=== PATIENT | female | born 1955 | race African-American/Black ===

== ENCOUNTER 2021-07-28 10:31 | Emergency (ER) | payer MEDICARE, MEDICAID ==
[2021-07-28 12:05] LABS: Bilirubin Neg (Negative); Blood, Urine 150 (Negative); Clarity Cloudy (Clear); Glucose, Urine (Dipstick) Normal (Negative); Ketone, Urine Negative (Negative); Leukocyte 100 (Negative); Nitrite Negative (Negative); Protein, Urine (Dipstick) 100 mg/dl (Neg-Trace); Urobilinogen Normal mg/dL (Less than 2)
[2021-07-28 12:17] LABS: Squamous Epithelial 0-3 HPF (0-3)
[2021-07-28 12:19] LABS: Bacteria/HPF 1+ HPF (None Seen); Mucous/LPF Rare LPF (<2+)
[2021-07-28 12:20] LABS: Transitional Epithelial 0-3 HPF (None Seen)
[2021-07-28 12:25] LABS: #Monocytes 0.3 10x3/uL (0.0-1.1); #Neutrophils 3.1 10x3/uL (1.5-8.4); %Eosinophils 0.3 % (0.0-6.0); %Lymphocytes 15.8 % (18.0-47.0); %Monocytes 6.5 % (0.0-10.0); %Neutrophils 77.1 % (40.0-75.0); Hemoglobin 11.9 g/dL (12.0-15.5); Mean Corpuscular HGB CONC 32.4 g/dL (32.0-36.0); Mean Corpuscular Hemoglobin 28.1 pg (27.0-33.0); Mean Corpuscular Volume 86.8 fl (81.6-98.3); Mean Platelet Volume 9.5 fl (7.4-10.4); Platelet Count 184 10x3/uL (150-450); RBC Distribution Width 13.6 % (11.5-14.5); Red Blood Cell (RBC) Count 4.23 10x6/uL (3.90-5.03)
[2021-07-28 12:36] LABS: ALT (SGPT) 50 U/L (8-55); AST (SGOT) 41 U/L (5-34); Albumin 4.1 g/dL (3.4-4.8); Alkaline Phosphatase 63 U/L (40-110); Anion Gap 13 mmol/L (10-20); BUN (Urea Nitrogen) 11 mg/dL (9.8-20.1); Bilirubin, Total 0.7 mg/dL (0.2-1.2); Calc. Creatinine Clearance 0 mL/min (70-130); Carbon Dioxide 27 mmol/L (23-31); Chloride 105 mmol/L (98-107); Glucose 103 mg/dL (80-115); Potassium 3.4 mmol/L (3.5-5.1); Protein, Total 7.1 g/dL (5.8-8.1); Sodium 142 mmol/L (136-145)
[2021-07-28 22:38] LABS: SARS-CoV-2 PCR by NAA DETECTED (NotDetected)
== END 2021-07-28 15:25 | disposition home or self-care (01) ==
LOC: CSHERS 10:31
DX: U07.1 COVID-19 (principal); N39.0 Urinary tract infection, site not specified; I10 Essential (primary) hypertension; K21.9 Gastro-esophageal reflux disease without esophagitis; G20 Parkinson's disease; G89.29 Other chronic pain; M54.9 Dorsalgia, unspecified; Z79.899 Other long term (current) drug therapy
CPT/HCPCS: 71045; 80053; 85025; 87086; 99284; U0003; U0005; 81003; 81015

== ENCOUNTER 2021-08-03 07:17 | Emergency (ER) | payer MEDICARE, MEDICAID ==
[2021-08-03 08:06] LABS: #Eosinphils 0.1 10x3/uL (0.0-0.5); #Monocytes 0.4 10x3/uL (0.0-1.1); %Basophils 0.4 % (0.0-2.0); %Eosinophils 1.5 % (0.0-6.0); %Lymphocytes 22.3 % (18.0-47.0); %Neutrophils 67.4 % (40.0-75.0); Hemoglobin 11.9 g/dL (12.0-15.5); Mean Corpuscular HGB CONC 32.4 g/dL (32.0-36.0); Mean Corpuscular Hemoglobin 28.3 pg (27.0-33.0); Mean Corpuscular Volume 87.2 fl (81.6-98.3); Mean Platelet Volume 9.3 fl (7.4-10.4); Platelet Count 337 10x3/uL (150-450); RBC Distribution Width 13.2 % (11.5-14.5); Red Blood Cell (RBC) Count 4.21 10x6/uL (3.90-5.03); White Blood Cell (WBC) Count 4.5 10x3/uL (3.5-10.5)
[2021-08-03] MEDS ORDERED: Ondansetron PF 4 MG/2 ML Vial ONE (08:21)
[2021-08-03 09:02] LABS: ALT (SGPT) 31 U/L (8-55); AST (SGOT) 26 U/L (5-34); Albumin 3.8 g/dL (3.4-4.8); Alkaline Phosphatase 58 U/L (40-110); Anion Gap 14 mmol/L (10-20); BUN (Urea Nitrogen) 11 mg/dL (9.8-20.1); Bilirubin, Total 0.8 mg/dL (0.2-1.2); Calc. Creatinine Clearance 0 mL/min (70-130); Calcium 9.3 mg/dL (7.8-10.44); Carbon Dioxide 23 mmol/L (23-31); Chloride 108 mmol/L (98-107); Globulin 3.1 g/dL (2.4-3.5); Glucose 111 mg/dL (80-115); Potassium 3.3 mmol/L (3.5-5.1); Protein, Total 6.9 g/dL (5.8-8.1); Sodium 142 mmol/L (136-145)
== END 2021-08-03 15:21 | disposition short-term general hospital (02) ==
LOC: CSHERS 07:17
DX: U07.1 COVID-19 (principal); K21.9 Gastro-esophageal reflux disease without esophagitis; I10 Essential (primary) hypertension
CPT/HCPCS: 71045; 80053; 84484; 85025; 93005; 94760; 96374; J2405

== ENCOUNTER 2022-03-30 11:41 | Inpatient (IN) | payer MEDICARE, MEDICAID ==
[2022-03-30] MEDS ORDERED: Acetaminophen 500 MG TAB ONE (13:11)
[2022-03-30 17:39] LABS: #Eosinphils 0.1 10x3/uL (0.0-0.5); #Monocytes 0.4 10x3/uL (0.0-1.1); #Neutrophils 3.3 10x3/uL (1.5-8.4); %Basophils 0.6 % (0.0-2.0); %Eosinophils 1.9 % (0.0-6.0); %Neutrophils 62.1 % (40.0-75.0); Hemoglobin 12.6 g/dL (12.0-15.5); Mean Corpuscular HGB CONC 32.3 g/dL (32.0-36.0); Mean Corpuscular Hemoglobin 29.1 pg (27.0-33.0); Mean Corpuscular Volume 90.1 fl (81.6-98.3); Mean Platelet Volume 9.7 fl (7.4-10.4); Platelet Count 231 10x3/uL (150-450); RBC Distribution Width 13.2 % (11.5-14.5); Red Blood Cell (RBC) Count 4.33 10x6/uL (3.90-5.03); White Blood Cell (WBC) Count 5.3 10x3/uL (3.5-10.5)
[2022-03-30 17:43] LABS: ALT (SGPT) 9 U/L (8-55); AST (SGOT) 18 U/L (5-34); Albumin 4.3 g/dL (3.4-4.8); Alkaline Phosphatase 64 U/L (40-110); Anion Gap 12 mmol/L (10-20); BUN (Urea Nitrogen) 12 mg/dL (9.8-20.1); Bilirubin, Total 0.9 mg/dL (0.2-1.2); Calc. Creatinine Clearance 0 mL/min (70-130); Calcium 9.4 mg/dL (7.8-10.44); Carbon Dioxide 24 mmol/L (23-31); Chloride 108 mmol/L (98-107); Estimated GFR 75; Globulin 2.8 g/dL (2.4-3.5); Glucose 98 mg/dL (80-115); Potassium 3.4 mmol/L (3.5-5.1); Protein, Total 7.1 g/dL (5.8-8.1); Sodium 141 mmol/L (136-145)
[2022-03-30] MEDS ORDERED: Ondansetron ODT 4 MG TAB PO PRN (18:02)
[2022-03-30] MEDS ORDERED: Ondansetron PF 4 MG/2 ML Vial IVP PRN (18:02)
[2022-03-30 18:25] LABS: Magnesium 2.1 mg/dL (1.6-2.6)
[2022-03-30 18:31] LABS: SARS-CoV-2 NAA Rapid Test DETECTED (NotDetected)
[2022-03-30] MEDS ORDERED: Potassium Chloride 20 MEQ TAB PO SCH (20:15)
[2022-03-30 21:58] VITALS: BMI 34.0
[2022-03-30 22:50] LABS: Bilirubin Negative (Negative); Blood, Urine Small (Negative); Clarity Clear (Clear); Glucose, Urine (Dipstick) Negative (Negative); Ketone, Urine Negative (Negative); Leukocyte Small (Negative); Nitrite Negative (Negative); Protein, Urine (Dipstick) Negative (Neg-Trace); Urobilinogen 0.2 mg/dL (Less than 2)
[2022-03-30 23:09] LABS: Bacteria/HPF Rare-Few HPF (None Seen); RBC/HPF 0-3 HPF (0-3); Squamous Epithelial 0-3 HPF (0-3)
[2022-03-30] MEDS: Carbidopa/Levodopa 10-100 mg Tablet PO SCH (23:23)
[2022-03-31 04:46] LABS: #Eosinphils 0.1 10x3/uL (0.0-0.5); #Monocytes 0.3 10x3/uL (0.0-1.1); #Neutrophils 2.9 10x3/uL (1.5-8.4); %Basophils 0.4 % (0.0-2.0); %Eosinophils 2.8 % (0.0-6.0); %Lymphocytes 28.2 % (18.0-47.0); %Neutrophils 61.2 % (40.0-75.0); Hemoglobin 11.6 g/dL (12.0-15.5); Mean Corpuscular HGB CONC 32.6 g/dL (32.0-36.0); Mean Corpuscular Hemoglobin 29.1 pg (27.0-33.0); Mean Corpuscular Volume 89.2 fl (81.6-98.3); Mean Platelet Volume 9.7 fl (7.4-10.4); Platelet Count 229 10x3/uL (150-450); RBC Distribution Width 13.2 % (11.5-14.5); Red Blood Cell (RBC) Count 3.99 10x6/uL (3.90-5.03); White Blood Cell (WBC) Count 4.7 10x3/uL (3.5-10.5)
[2022-03-31 04:58] LABS: Anion Gap 14 mmol/L (10-20); BUN (Urea Nitrogen) 13 mg/dL (9.8-20.1); Calc. Creatinine Clearance 103 mL/min (70-130); Calcium 9.2 mg/dL (7.8-10.44); Carbon Dioxide 22 mmol/L (23-31); Chloride 111 mmol/L (98-107); Estimated GFR 87; Glucose 90 mg/dL (80-115); Potassium 3.9 mmol/L (3.5-5.1); Sodium 143 mmol/L (136-145)
[2022-03-31] MEDS ORDERED: Furosemide 40 MG/4 ML VIAL SLOW IVP SCH (09:15)
[2022-03-31] MEDS ORDERED: Potassium Chloride 20 MEQ TAB PO SCH (09:15)
[2022-03-31] MEDS ORDERED: Gabapentin 100 MG CAP PO SCH (09:15)
[2022-03-31] MEDS: Lisinopril 5 MG TAB PO SCH (09:40)
[2022-03-31] MEDS: Acetaminophen 325 MG TAB PO PRN (09:40)
[2022-03-31] MEDS: Carbidopa/Levodopa 10-100 mg Tablet PO SCH ×3 (09:40→22:00)
[2022-03-31] MEDS: Gabapentin 100 MG CAP PO SCH ×2 (20:49→22:00)
[2022-04-01] MEDS: Acetaminophen 325 MG TAB PO PRN (03:03)
[2022-04-01 04:43] LABS: Anion Gap 14 mmol/L (10-20); BUN (Urea Nitrogen) 17 mg/dL (9.8-20.1); Calc. Creatinine Clearance 80 mL/min (70-130); Calcium 9.1 mg/dL (7.8-10.44); Carbon Dioxide 23 mmol/L (23-31); Chloride 108 mmol/L (98-107); Estimated GFR 64; Glucose 105 mg/dL (80-115); Potassium 3.8 mmol/L (3.5-5.1); Sodium 141 mmol/L (136-145)
[2022-04-01 04:59] LABS: #Eosinphils 0.2 10x3/uL (0.0-0.5); #Monocytes 0.4 10x3/uL (0.0-1.1); #Neutrophils 3.6 10x3/uL (1.5-8.4); %Basophils 0.3 % (0.0-2.0); %Eosinophils 2.9 % (0.0-6.0); %Lymphocytes 27.2 % (18.0-47.0); %Monocytes 6.5 % (0.0-10.0); %Neutrophils 62.8 % (40.0-75.0); Hemoglobin 11.5 g/dL (12.0-15.5); Mean Corpuscular HGB CONC 31.7 g/dL (32.0-36.0); Mean Corpuscular Hemoglobin 28.3 pg (27.0-33.0); Mean Corpuscular Volume 89.2 fl (81.6-98.3); Platelet Count 232 10x3/uL (150-450); RBC Distribution Width 13.4 % (11.5-14.5); Red Blood Cell (RBC) Count 4.07 10x6/uL (3.90-5.03); White Blood Cell (WBC) Count 5.8 10x3/uL (3.5-10.5)
[2022-04-01] MEDS ORDERED: Furosemide 40 MG TAB PO SCH (07:30)
[2022-04-01] MEDS: Gabapentin 100 MG CAP PO SCH ×2 (09:07→21:09)
[2022-04-01] MEDS: Lisinopril 5 MG TAB PO SCH (09:07)
[2022-04-01] MEDS: Potassium Chloride 20 MEQ TAB PO SCH (09:07)
[2022-04-01] MEDS: Carbidopa/Levodopa 10-100 mg Tablet PO SCH ×2 (09:07→21:08)
[2022-04-02 04:38] LABS: #Eosinphils 0.2 10x3/uL (0.0-0.5); #Monocytes 0.4 10x3/uL (0.0-1.1); #Neutrophils 3.3 10x3/uL (1.5-8.4); %Basophils 0.4 % (0.0-2.0); %Eosinophils 4.1 % (0.0-6.0); %Lymphocytes 27.8 % (18.0-47.0); %Monocytes 6.9 % (0.0-10.0); %Neutrophils 60.4 % (40.0-75.0); Hemoglobin 11.8 g/dL (12.0-15.5); Mean Corpuscular HGB CONC 32.7 g/dL (32.0-36.0); Mean Corpuscular Hemoglobin 28.9 pg (27.0-33.0); Mean Corpuscular Volume 88.3 fl (81.6-98.3); Mean Platelet Volume 9.6 fl (7.4-10.4); Platelet Count 219 10x3/uL (150-450); RBC Distribution Width 13.3 % (11.5-14.5); Red Blood Cell (RBC) Count 4.09 10x6/uL (3.90-5.03); White Blood Cell (WBC) Count 5.4 10x3/uL (3.5-10.5)
[2022-04-02 04:47] LABS: Anion Gap 13 mmol/L (10-20); BUN (Urea Nitrogen) 14 mg/dL (9.8-20.1); Calc. Creatinine Clearance 97 mL/min (70-130); Calcium 8.9 mg/dL (7.8-10.44); Carbon Dioxide 22 mmol/L (23-31); Chloride 110 mmol/L (98-107); Estimated GFR 81; Glucose 89 mg/dL (80-115); Potassium 3.9 mmol/L (3.5-5.1); Sodium 141 mmol/L (136-145)
[2022-04-02] MEDS: Potassium Chloride 20 MEQ TAB PO SCH (09:16)
[2022-04-02] MEDS: Carbidopa/Levodopa 10-100 mg Tablet PO SCH (09:16)
[2022-04-02] MEDS: Gabapentin 100 MG CAP PO SCH (09:16)
[2022-04-02] MEDS: Lisinopril 5 MG TAB PO SCH (09:16)
[2022-04-02] MEDS ORDERED: Gabapentin 100 MG CAP PO SCH (11:00)
[2022-04-02 16:31] VITALS: BP 100/55; TEMP 97.8
[2022-04-02] MEDS ORDERED: Gabapentin 300 MG CAP PO SCH (21:00)
== END 2022-04-02 19:07 | disposition swing bed (61) | DRG 178 ==
LOC: CSHERS 11:41 → CSHTELE 21:53
PROVIDERS: ADMIT Internal Medicine; ATTEND Family Medicine
PROC: 8E0ZXY6 Isolation (ICD-10-PCS; principal; 2022-03-30)
DX: U07.1 COVID-19 (principal); I50.32 Chronic diastolic (congestive) heart failure; R53.1 Weakness; M54.50 Low back pain, unspecified; G89.29 Other chronic pain; I89.0 Lymphedema, not elsewhere classified; I11.0 Hypertensive heart disease with heart failure; G62.9 Polyneuropathy, unspecified; G20 Parkinson's disease; Z88.5 Allergy status to narcotic agent; Z79.899 Other long term (current) drug therapy; Z90.49 Acquired absence of other specified parts of digestive tract; Z98.51 Tubal ligation status; Z98.890 Other specified postprocedural states
CPT/HCPCS: 36415; 80048; 80053; 81001; 83735; 84443; 85025; 93306; 94760; J1940; J2405; U0002

== ENCOUNTER 2022-07-26 12:23 | Inpatient (IN) | payer MEDICARE, MEDICAID ==
[2022-07-26 13:07] LABS: #Monocytes 0.4 10x3/uL (0.0-1.1); %Basophils 0.3 % (0.0-2.0); %Eosinophils 0.3 % (0.0-6.0); %Lymphocytes 6.8 % (18.0-47.0); %Monocytes 4.4 % (0.0-10.0); %Neutrophils 87.8 % (40.0-75.0); Hemoglobin 13.3 g/dL (12.0-15.5); Mean Corpuscular HGB CONC 32.7 g/dL (32.0-36.0); Mean Corpuscular Hemoglobin 28.7 pg (27.0-33.0); Mean Corpuscular Volume 87.7 fl (81.6-98.3); Mean Platelet Volume 10.3 fl (7.4-10.4); Platelet Count 209 10x3/uL (150-450); RBC Distribution Width 13.5 % (11.5-14.5); Red Blood Cell (RBC) Count 4.64 10x6/uL (3.90-5.03); White Blood Cell (WBC) Count 7.9 10x3/uL (3.5-10.5)
[2022-07-26 14:11] LABS: ALT (SGPT) 36 U/L (8-55); AST (SGOT) 89 U/L (5-34); Albumin 4.5 g/dL (3.4-4.8); Alkaline Phosphatase 78 U/L (40-110); Anion Gap 17 mmol/L (10-20); BUN (Urea Nitrogen) 12 mg/dL (9.8-20.1); Calc. Creatinine Clearance 0 mL/min (70-130); Calcium 9.7 mg/dL (7.8-10.44); Carbon Dioxide 19 mmol/L (23-31); Chloride 106 mmol/L (98-107); Estimated GFR 95; Globulin 2.9 g/dL (2.4-3.5); Glucose 104 mg/dL (80-115); Potassium 3.8 mmol/L (3.5-5.1); Protein, Total 7.4 g/dL (5.8-8.1); Sodium 138 mmol/L (136-145)
[2022-07-26 14:22] LABS: CK (CPK) 4972 U/L (29-168)
[2022-07-26 15:03] LABS: Bilirubin Neg (Negative); Blood, Urine 250 (Negative); Clarity Clear (Clear); Glucose, Urine (Dipstick) Normal (Negative); Ketone, Urine 5 mg/dL (Negative); Leukocyte Negative (Negative); Nitrite Negative (Negative); Protein, Urine (Dipstick) 100 mg/dl (Neg-Trace); Specific Gravity, Urine 1.015 (1.005-1.030); Urobilinogen Normal mg/dL (Less than 2); pH, Urine 6.5 (5.0-9.0)
[2022-07-26 15:11] LABS: Squamous Epithelial 0-3 HPF (0-3); WBC/HPF 0-3 HPF (0-3)
[2022-07-26 15:12] LABS: Bacteria/HPF Rare-Few HPF (None Seen)
[2022-07-26] MEDS ORDERED: Methocarbamol 500 MG TAB PO SCH (15:15)
[2022-07-26] MEDS ORDERED: Ondansetron PF 4 MG/2 ML Vial IVP PRN (16:39)
[2022-07-26] MEDS ORDERED: Ondansetron ODT 4 MG TAB PO PRN (16:39)
[2022-07-26 21:26] VITALS: BMI 34.8
[2022-07-26] MEDS: Sodium Chloride 0.9% 1,000 ML IV SCH (22:24)
[2022-07-27 05:06] LABS: #Eosinphils 0.2 10x3/uL (0.0-0.5); #Monocytes 1.4 10x3/uL (0.0-1.1); #Neutrophils 4.5 10x3/uL (1.5-8.4); %Basophils 0.1 % (0.0-2.0); %Eosinophils 2.6 % (0.0-6.0); %Lymphocytes 18.2 % (18.0-47.0); %Monocytes 18.4 % (0.0-10.0); %Neutrophils 60.4 % (40.0-75.0); Hemoglobin 12.7 g/dL (12.0-15.5); Mean Corpuscular HGB CONC 32.8 g/dL (32.0-36.0); Mean Corpuscular Hemoglobin 28.8 pg (27.0-33.0); Mean Corpuscular Volume 87.8 fl (81.6-98.3); Mean Platelet Volume 9.9 fl (7.4-10.4); Platelet Count 186 10x3/uL (150-450); RBC Distribution Width 13.4 % (11.5-14.5); Red Blood Cell (RBC) Count 4.41 10x6/uL (3.90-5.03); White Blood Cell (WBC) Count 7.4 10x3/uL (3.5-10.5)
[2022-07-27] MEDS: Sodium Chloride 0.9% 1,000 ML IV SCH ×4 (05:08→16:38)
[2022-07-27 05:14] LABS: Anion Gap 17 mmol/L (10-20); BUN (Urea Nitrogen) 8 mg/dL (9.8-20.1); Calc. Creatinine Clearance 115 mL/min (70-130); Calcium 9.1 mg/dL (7.8-10.44); Carbon Dioxide 21 mmol/L (23-31); Chloride 107 mmol/L (98-107); Estimated GFR 95; Glucose 69 mg/dL (80-115); Potassium 3.3 mmol/L (3.5-5.1); Sodium 142 mmol/L (136-145)
[2022-07-27 05:25] LABS: CK (CPK) 4366 U/L (29-168)
[2022-07-27 05:39] LABS: Eosinophils 1 % (0-10); Lymphocytes 18 % (21-51); Monocytes 13 % (0-10); Reactive Lymphocytes 1 % (0-10)
[2022-07-27 05:42] LABS: Diff Comment (RBC Morph SCRN) NORMAL; Neutrophil 67 % (42-75)
[2022-07-27] MEDS: Acetaminophen 325 MG TAB PO PRN ×3 (05:51→17:14)
[2022-07-27 09:56] LABS: Magnesium 1.8 mg/dL (1.6-2.6)
[2022-07-27] MEDS ORDERED: Artificial Tear Sol 15 ML BOT EA EYE PRN (10:52)
[2022-07-27] MEDS ORDERED: Loratadine 10 MG TAB PO PRN (10:53)
[2022-07-27] MEDS ORDERED: Potassium Chloride 20 MEQ TAB PO SCH ×2 (11:00→17:00)
[2022-07-27] MEDS ORDERED: Amantadine HCl 100 mg Capsule PO SCH (11:00)
[2022-07-27] MEDS ORDERED: Gabapentin 300 MG CAP PO SCH (11:00)
[2022-07-27] MEDS ORDERED: Loratadine 10 MG TAB PO SCH (11:00)
[2022-07-27] MEDS ORDERED: Carbidopa/Levodopa 10-100 mg Tablet PO SCH (11:00)
[2022-07-27] MEDS ORDERED: Lisinopril 5 MG TAB PO SCH ×2 (11:00→21:00)
[2022-07-27] MEDS ORDERED: Electrolyte Replacement Protocol 1 EACH FS SCH (11:15)
[2022-07-27] MEDS ORDERED: Lisinopril 2.5 MG TAB PO SCH (11:15)
[2022-07-27] MEDS ORDERED: Magnesium 2 GM/50 ML(in water) 2 GM in Premix Bag 1 BAG IVPB SCH (12:15)
[2022-07-27] MEDS: Methocarbamol 500 MG TAB PO PRN ×2 (12:21→21:26)
[2022-07-27] MEDS: Gabapentin 300 MG CAP PO SCH (21:26)
[2022-07-28 03:40] LABS: #Eosinphils 0.2 10x3/uL (0.0-0.5); #Monocytes 0.3 10x3/uL (0.0-1.1); #Neutrophils 2.7 10x3/uL (1.5-8.4); %Basophils 0.4 % (0.0-2.0); %Eosinophils 4.1 % (0.0-6.0); %Lymphocytes 29.6 % (18.0-47.0); %Monocytes 7.1 % (0.0-10.0); %Neutrophils 58.4 % (40.0-75.0); Mean Corpuscular HGB CONC 32.6 g/dL (32.0-36.0); Mean Corpuscular Hemoglobin 28.4 pg (27.0-33.0); Mean Corpuscular Volume 87.1 fl (81.6-98.3); Mean Platelet Volume 9.7 fl (7.4-10.4); Platelet Count 215 10x3/uL (150-450); RBC Distribution Width 13.6 % (11.5-14.5); Red Blood Cell (RBC) Count 3.87 10x6/uL (3.90-5.03); White Blood Cell (WBC) Count 4.7 10x3/uL (3.5-10.5)
[2022-07-28 03:58] LABS: Anion Gap 15 mmol/L (10-20); BUN (Urea Nitrogen) 11 mg/dL (9.8-20.1); CK (CPK) 2989 U/L (29-168); Calc. Creatinine Clearance 107 mL/min (70-130); Calcium 8.5 mg/dL (7.8-10.44); Carbon Dioxide 22 mmol/L (23-31); Chloride 111 mmol/L (98-107); Estimated GFR 87; Glucose 90 mg/dL (80-115); Magnesium 2.1 mg/dL (1.6-2.6); Potassium 3.5 mmol/L (3.5-5.1); Sodium 144 mmol/L (136-145)
[2022-07-28] MEDS: Sodium Chloride 0.9% 1,000 ML IV SCH ×3 (06:33→10:34)
[2022-07-28] MEDS ORDERED: Potassium Chloride 20 MEQ TAB PO SCH (08:00)
[2022-07-28] MEDS: Gabapentin 300 MG CAP PO SCH ×2 (08:58→21:24)
[2022-07-28] MEDS: Lisinopril 2.5 MG TAB PO SCH (08:58)
[2022-07-28] MEDS: Methocarbamol 500 MG TAB PO PRN (08:59)
[2022-07-28] MEDS: Carbidopa/Levodopa 10-100 mg Tablet PO SCH (08:59)
[2022-07-28] MEDS ORDERED: Carbidopa/Levodopa 10-100 mg Tablet PO SCH (09:00)
[2022-07-28] MEDS: Amantadine HCl 100 mg Capsule PO SCH (09:01)
[2022-07-28] MEDS: hydrALAZINE 25 MG TAB PO PRN ×2 (13:31→21:25)
[2022-07-28] MEDS: Acetaminophen 325 MG TAB PO PRN ×2 (15:33→21:26)
[2022-07-28] MEDS: Lidocaine 5% Patch TD SCH ×2 (19:50→21:24)
[2022-07-28] MEDS: Lactated Ringer's 1,000 ML IV SCH (21:24)
[2022-07-29] MEDS: Lactated Ringer's 1,000 ML IV SCH ×3 (04:11→18:39)
[2022-07-29 04:39] LABS: #Eosinphils 0.2 10x3/uL (0.0-0.5); #Monocytes 0.4 10x3/uL (0.0-1.1); #Neutrophils 3.2 10x3/uL (1.5-8.4); %Basophils 0.4 % (0.0-2.0); %Eosinophils 4.1 % (0.0-6.0); %Neutrophils 62.9 % (40.0-75.0); Hemoglobin 11.6 g/dL (12.0-15.5); Mean Corpuscular HGB CONC 32.1 g/dL (32.0-36.0); Mean Corpuscular Hemoglobin 28.2 pg (27.0-33.0); Mean Corpuscular Volume 87.8 fl (81.6-98.3); Mean Platelet Volume 9.7 fl (7.4-10.4); Platelet Count 203 10x3/uL (150-450); RBC Distribution Width 13.6 % (11.5-14.5); Red Blood Cell (RBC) Count 4.11 10x6/uL (3.90-5.03); White Blood Cell (WBC) Count 5.2 10x3/uL (3.5-10.5)
[2022-07-29 04:53] LABS: Anion Gap 11 mmol/L (10-20); BUN (Urea Nitrogen) 11 mg/dL (9.8-20.1); Calc. Creatinine Clearance 105 mL/min (70-130); Calcium 9.1 mg/dL (7.8-10.44); Carbon Dioxide 24 mmol/L (23-31); Chloride 108 mmol/L (98-107); Estimated GFR 84; Glucose 97 mg/dL (80-115); Potassium 3.2 mmol/L (3.5-5.1); Sodium 140 mmol/L (136-145)
[2022-07-29] MEDS ORDERED: Potassium Chloride 20 MEQ TAB PO SCH (05:45)
[2022-07-29] MEDS ORDERED: Transdermal Patch Removal TOP SCH (08:00)
[2022-07-29] MEDS: Lisinopril 2.5 MG TAB PO SCH (10:10)
[2022-07-29] MEDS: Amantadine HCl 100 mg Capsule PO SCH (10:10)
[2022-07-29] MEDS: Carbidopa/Levodopa 10-100 mg Tablet PO SCH (10:11)
[2022-07-29] MEDS ORDERED: hydrALAZINE 20 MG/ML VIAL SLOW IVP PRN (17:52)
[2022-07-29] MEDS ORDERED: Lisinopril 5 MG TAB PO SCH (18:00)
[2022-07-29 19:11] LABS: SARS-CoV-2 NAA Rapid Test Not Detected (NotDetected)
[2022-07-29] MEDS: Acetaminophen 325 MG TAB PO PRN (21:14)
[2022-07-30] MEDS: Lactated Ringer's 1,000 ML IV SCH ×4 (00:04→21:18)
[2022-07-30] MEDS: Acetaminophen 325 MG TAB PO PRN (04:01)
[2022-07-30 04:56] LABS: Anion Gap 11 mmol/L (10-20); BUN (Urea Nitrogen) 9 mg/dL (9.8-20.1); CK (CPK) 1270 U/L (29-168); Calc. Creatinine Clearance 113 mL/min (70-130); Calcium 9.4 mg/dL (7.8-10.44); Carbon Dioxide 26 mmol/L (23-31); Chloride 107 mmol/L (98-107); Estimated GFR 93; Glucose 90 mg/dL (80-115); Potassium 3.4 mmol/L (3.5-5.1); Sodium 141 mmol/L (136-145)
[2022-07-30 05:37] LABS: #Eosinphils 0.2 10x3/uL (0.0-0.5); #Monocytes 0.3 10x3/uL (0.0-1.1); #Neutrophils 3.1 10x3/uL (1.5-8.4); %Basophils 0.4 % (0.0-2.0); %Eosinophils 4.5 % (0.0-6.0); %Lymphocytes 27.3 % (18.0-47.0); %Monocytes 6.6 % (0.0-10.0); %Neutrophils 60.8 % (40.0-75.0); Hemoglobin 12.2 g/dL (12.0-15.5); Mean Corpuscular HGB CONC 33.2 g/dL (32.0-36.0); Mean Corpuscular Hemoglobin 28.7 pg (27.0-33.0); Mean Corpuscular Volume 86.4 fl (81.6-98.3); Mean Platelet Volume 9.7 fl (7.4-10.4); Platelet Count 239 10x3/uL (150-450); RBC Distribution Width 13.4 % (11.5-14.5); Red Blood Cell (RBC) Count 4.25 10x6/uL (3.90-5.03); White Blood Cell (WBC) Count 5.1 10x3/uL (3.5-10.5)
[2022-07-30] MEDS ORDERED: Potassium Chloride 20 MEQ TAB PO SCH (06:00)
[2022-07-30] MEDS: Amantadine HCl 100 mg Capsule PO SCH (10:45)
[2022-07-30] MEDS: Lisinopril 10 MG TAB PO SCH (10:48)
[2022-07-30] MEDS: Carbidopa/Levodopa 10-100 mg Tablet PO SCH (10:49)
[2022-07-30] MEDS: Lisinopril 2.5 MG TAB PO SCH (11:50)
[2022-07-31 05:10] LABS: #Eosinphils 0.2 10x3/uL (0.0-0.5); #Monocytes 0.3 10x3/uL (0.0-1.1); #Neutrophils 3.2 10x3/uL (1.5-8.4); %Basophils 0.4 % (0.0-2.0); %Eosinophils 4.2 % (0.0-6.0); %Lymphocytes 24.8 % (18.0-47.0); %Monocytes 6.2 % (0.0-10.0); %Neutrophils 63.6 % (40.0-75.0); Hemoglobin 12.5 g/dL (12.0-15.5); Mean Corpuscular HGB CONC 33.2 g/dL (32.0-36.0); Mean Corpuscular Hemoglobin 28.8 pg (27.0-33.0); Mean Corpuscular Volume 86.9 fl (81.6-98.3); Mean Platelet Volume 9.6 fl (7.4-10.4); Platelet Count 224 10x3/uL (150-450); RBC Distribution Width 13.3 % (11.5-14.5); Red Blood Cell (RBC) Count 4.34 10x6/uL (3.90-5.03)
[2022-07-31 05:20] LABS: Anion Gap 15 mmol/L (10-20); BUN (Urea Nitrogen) 13 mg/dL (9.8-20.1); Calc. Creatinine Clearance 106 mL/min (70-130); Calcium 9.6 mg/dL (7.8-10.44); Carbon Dioxide 23 mmol/L (23-31); Chloride 107 mmol/L (98-107); Estimated GFR 86; Glucose 91 mg/dL (80-115); Potassium 3.8 mmol/L (3.5-5.1); Sodium 141 mmol/L (136-145)
[2022-07-31] MEDS: Lactated Ringer's 1,000 ML IV SCH ×4 (06:22→20:04)
[2022-07-31] MEDS: Amantadine HCl 100 mg Capsule PO SCH (08:25)
[2022-07-31] MEDS: Lisinopril 10 MG TAB PO SCH (08:26)
[2022-07-31] MEDS: Carbidopa/Levodopa 10-100 mg Tablet PO SCH (08:26)
[2022-07-31] MEDS: Acetaminophen 325 MG TAB PO PRN (18:36)
[2022-08-01] MEDS: Lactated Ringer's 1,000 ML IV SCH ×2 (03:02→09:13)
[2022-08-01 04:54] LABS: #Eosinphils 0.2 10x3/uL (0.0-0.5); #Monocytes 0.4 10x3/uL (0.0-1.1); #Neutrophils 2.9 10x3/uL (1.5-8.4); %Basophils 0.4 % (0.0-2.0); %Eosinophils 4.5 % (0.0-6.0); %Lymphocytes 26.7 % (18.0-47.0); %Monocytes 7.6 % (0.0-10.0); Hemoglobin 12.7 g/dL (12.0-15.5); Mean Corpuscular Hemoglobin 28.7 pg (27.0-33.0); Mean Corpuscular Volume 87.1 fl (81.6-98.3); Mean Platelet Volume 9.7 fl (7.4-10.4); Platelet Count 237 10x3/uL (150-450); RBC Distribution Width 13.5 % (11.5-14.5); Red Blood Cell (RBC) Count 4.42 10x6/uL (3.90-5.03); White Blood Cell (WBC) Count 4.8 10x3/uL (3.5-10.5)
[2022-08-01 05:06] LABS: Anion Gap 13 mmol/L (10-20); BUN (Urea Nitrogen) 13 mg/dL (9.8-20.1); CK (CPK) 575 U/L (29-168); Calc. Creatinine Clearance 102 mL/min (70-130); Calcium 9.5 mg/dL (7.8-10.44); Carbon Dioxide 24 mmol/L (23-31); Chloride 107 mmol/L (98-107); Estimated GFR 82; Glucose 88 mg/dL (80-115); Potassium 3.9 mmol/L (3.5-5.1); Sodium 140 mmol/L (136-145)
[2022-08-01] MEDS: Lisinopril 10 MG TAB PO SCH (09:07)
[2022-08-01] MEDS: Acetaminophen 325 MG TAB PO PRN (09:07)
[2022-08-01] MEDS: Carbidopa/Levodopa 10-100 mg Tablet PO SCH (09:14)
[2022-08-01] MEDS: Amantadine HCl 100 mg Capsule PO SCH (09:14)
[2022-08-01 15:34] VITALS: BP 141/81; TEMP 98.3
== END 2022-08-01 15:30 | disposition swing bed (61) | DRG 565 ==
LOC: CSHERS 12:23 → CSHTELE 16:38 → OBSVTOIN 16:38 → INTOOBSV 16:38
PROVIDERS: ADMIT Internal Medicine; ATTEND Hospitalist
DX: T79.6XXA Traumatic ischemia of muscle, initial encounter (principal); I50.32 Chronic diastolic (congestive) heart failure; Z20.822 Contact with and (suspected) exposure to COVID-19; R29.6 Repeated falls; G20 Parkinson's disease; M54.9 Dorsalgia, unspecified; S09.8XXA Other specified injuries of head, initial encounter; W18.30XA Fall on same level, unspecified, initial encounter; I11.0 Hypertensive heart disease with heart failure; G89.4 Chronic pain syndrome; G62.9 Polyneuropathy, unspecified; Z90.49 Acquired absence of other specified parts of digestive tract; Z98.51 Tubal ligation status; Z88.6 Allergy status to analgesic agent; Z79.899 Other long term (current) drug therapy; Z82.49 Family history of ischemic heart disease and other diseases of the circulatory system; Z80.51 Family history of malignant neoplasm of kidney
CPT/HCPCS: 36415; 51701; 70450; 71045; 72125; 72170; 80048; 80053; 81003; 81015; 82550; 83735; 83880; 84484; 85025; 87086; 93005; 94760; 96360; J1650; J3475; J7050; J7120; U0002

== ENCOUNTER 2023-02-15 19:25 | Inpatient (IN) | payer MEDICARE, MEDICAID ==
[2023-02-15 22:51] VITALS: BMI 28.1
[2023-02-16] MEDS ORDERED: Benzonatate 100 MG CAP PO PRN (00:56)
[2023-02-16] MEDS ORDERED: Artificial Tear Sol 15 ML BOT EA EYE PRN (00:56)
[2023-02-16] MEDS ORDERED: Loratadine 10 MG TAB PO PRN (00:56)
[2023-02-16] MEDS ORDERED: Methocarbamol 500 MG TAB PO PRN (00:56)
[2023-02-16] MEDS ORDERED: Sodium Chloride 0.9% 1,000 ML IV SCH (02:45)
[2023-02-16 05:42] LABS: #Eosinphils 0.1 10x3/uL (0.0-0.5); #Monocytes 0.4 10x3/uL (0.0-1.1); #Neutrophils 2.6 10x3/uL (1.5-8.4); %Basophils 0.5 % (0.0-2.0); %Eosinophils 2.8 % (0.0-6.0); %Lymphocytes 25.8 % (18.0-47.0); %Monocytes 8.5 % (0.0-10.0); %Neutrophils 62.2 % (40.0-75.0); Hematocrit 32.9 % (34.9-44.5); Hemoglobin 10.6 g/dL (12.0-15.5); Mean Corpuscular HGB CONC 32.2 g/dL (32.0-36.0); Mean Corpuscular Hemoglobin 28.6 pg (27.0-33.0); Mean Corpuscular Volume 88.9 fl (81.6-98.3); Mean Platelet Volume 9.7 fl (7.4-10.4); Platelet Count 214 10x3/uL (150-450); RBC Distribution Width 12.9 % (11.5-14.5); White Blood Cell (WBC) Count 4.2 10x3/uL (3.5-10.5)
[2023-02-16 06:02] LABS: ALT (SGPT) 19 U/L (8-55); AST (SGOT) 30 U/L (5-34); Albumin 3.6 g/dL (3.4-4.8); Alkaline Phosphatase 52 U/L (40-110); Anion Gap 12 mmol/L (10-20); BUN (Urea Nitrogen) 10 mg/dL (9.8-20.1); Bilirubin, Total 0.9 mg/dL (0.2-1.2); Calc. Creatinine Clearance 92 mL/min (70-130); Calcium 8.8 mg/dL (7.8-10.44); Carbon Dioxide 24 mmol/L (23-31); Chloride 108 mmol/L (98-107); Estimated GFR 83; Globulin 2.1 g/dL (2.4-3.5); Glucose 107 mg/dL (80-115); Potassium 3.1 mmol/L (3.5-5.1); Protein, Total 5.7 g/dL (5.8-8.1); Sodium 141 mmol/L (136-145)
[2023-02-16] MEDS ORDERED: Electrolyte Replacement Protocol 1 EACH FS PRN (06:45)
[2023-02-16 08:17] LABS: Troponin I Less than 0.010 ng/mL (< 0.028)
[2023-02-16] MEDS ORDERED: Lisinopril 5 MG TAB PO SCH (09:00)
[2023-02-16] MEDS ORDERED: Amlodipine 5 MG TAB PO SCH (09:00)
[2023-02-16] MEDS ORDERED: Magnesium 2 GM/50 ML(in water) 2 GM in Premix Bag 1 BAG IVPB SCH (09:00)
[2023-02-16] MEDS ORDERED: Carvedilol 3.125 MG TAB PO SCH (09:00)
[2023-02-16] MEDS ORDERED: Potassium Chloride 20 MEQ TAB PO SCH (09:00)
[2023-02-16] MEDS: Gabapentin 300 MG CAP PO SCH ×3 (10:21→21:32)
[2023-02-16] MEDS: Famotidine 20 MG TAB PO SCH ×2 (10:22→21:15)
[2023-02-16] MEDS: Carbidopa/Levodopa 10-100 mg Tablet PO SCH (10:23)
[2023-02-16] MEDS: Amantadine HCl 100 mg Capsule PO SCH (10:23)
[2023-02-16] MEDS: Fluticasone Propionate Nasal Spray 16 gm Bottle NASAL SCH (10:25)
[2023-02-16] MEDS: Sodium Chloride 0.9% 1,000 ML IV SCH (10:45)
[2023-02-16] MEDS: Carvedilol 3.125 MG TAB PO SCH (18:26)
[2023-02-17 04:12] LABS: Phosphorus 2.8 mg/dL (2.3-4.7)
[2023-02-17 04:14] LABS: ALT (SGPT) 14 U/L (8-55); AST (SGOT) 19 U/L (5-34); Albumin 3.7 g/dL (3.4-4.8); Alkaline Phosphatase 65 U/L (40-110); Anion Gap 15 mmol/L (10-20); BUN (Urea Nitrogen) 11 mg/dL (9.8-20.1); Bilirubin, Total 0.5 mg/dL (0.2-1.2); Calc. Creatinine Clearance 93 mL/min (70-130); Calcium 8.6 mg/dL (7.8-10.44); Carbon Dioxide 20 mmol/L (23-31); Chloride 110 mmol/L (98-107); Estimated GFR 84; Globulin 2.4 g/dL (2.4-3.5); Glucose 99 mg/dL (80-115); Magnesium 2.1 mg/dL (1.6-2.6); Potassium 3.6 mmol/L (3.5-5.1); Protein, Total 6.1 g/dL (5.8-8.1); Sodium 141 mmol/L (136-145)
[2023-02-17 04:18] LABS: #Eosinphils 0.2 10x3/uL (0.0-0.5); #Monocytes 0.4 10x3/uL (0.0-1.1); %Basophils 0.4 % (0.0-2.0); %Eosinophils 3.5 % (0.0-6.0); %Lymphocytes 26.5 % (18.0-47.0); %Monocytes 7.3 % (0.0-10.0); %Neutrophils 62.1 % (40.0-75.0); Hematocrit 36.1 % (34.9-44.5); Hemoglobin 11.4 g/dL (12.0-15.5); Mean Corpuscular HGB CONC 31.6 g/dL (32.0-36.0); Mean Corpuscular Hemoglobin 28.6 pg (27.0-33.0); Mean Corpuscular Volume 90.7 fl (81.6-98.3); Mean Platelet Volume 9.6 fl (7.4-10.4); Platelet Count 231 10x3/uL (150-450); RBC Distribution Width 12.8 % (11.5-14.5); Red Blood Cell (RBC) Count 3.98 10x6/uL (3.90-5.03); White Blood Cell (WBC) Count 4.9 10x3/uL (3.5-10.5)
[2023-02-17] MEDS: Sodium Chloride 0.9% 1,000 ML IV SCH ×2 (05:18→22:44)
[2023-02-17] MEDS: Acetaminophen 325 MG TAB PO PRN (06:05)
[2023-02-17] MEDS ORDERED: hydrALAZINE 20 MG/ML VIAL SLOW IVP PRN (07:19)
[2023-02-17] MEDS ORDERED: hydrALAZINE 10 MG TAB PO PRN (08:15)
[2023-02-17] MEDS: Carvedilol 3.125 MG TAB PO SCH ×2 (08:56→17:30)
[2023-02-17] MEDS: Gabapentin 300 MG CAP PO SCH ×3 (08:56→22:43)
[2023-02-17] MEDS: Amlodipine 10 MG TAB PO SCH (08:57)
[2023-02-17] MEDS: Lisinopril 10 MG TAB PO SCH (08:57)
[2023-02-17] MEDS: Famotidine 20 MG TAB PO SCH (08:57)
[2023-02-17] MEDS: Fluticasone Propionate Nasal Spray 16 gm Bottle NASAL SCH (08:57)
[2023-02-17] MEDS: Amantadine HCl 100 mg Capsule PO SCH ×2 (08:57→12:04)
[2023-02-17] MEDS: Carbidopa/Levodopa 10-100 mg Tablet PO SCH ×2 (09:01→12:03)
[2023-02-18] MEDS: Acetaminophen 325 MG TAB PO PRN (06:18)
[2023-02-18] MEDS: Amlodipine 10 MG TAB PO SCH (09:13)
[2023-02-18] MEDS: Carvedilol 3.125 MG TAB PO SCH ×2 (09:13→17:09)
[2023-02-18] MEDS: Amantadine HCl 100 mg Capsule PO SCH (09:13)
[2023-02-18] MEDS: Carbidopa/Levodopa 10-100 mg Tablet PO SCH (09:13)
[2023-02-18] MEDS: Lisinopril 10 MG TAB PO SCH (09:14)
[2023-02-18] MEDS: Fluticasone Propionate Nasal Spray 16 gm Bottle NASAL SCH (09:14)
[2023-02-18] MEDS: Gabapentin 300 MG CAP PO SCH ×2 (09:14→23:16)
[2023-02-19] MEDS: Carvedilol 3.125 MG TAB PO SCH ×2 (08:11→17:00)
[2023-02-19] MEDS: Amlodipine 10 MG TAB PO SCH (09:10)
[2023-02-19] MEDS: Lisinopril 10 MG TAB PO SCH (09:11)
[2023-02-19] MEDS: Carbidopa/Levodopa 10-100 mg Tablet PO SCH (09:11)
[2023-02-19] MEDS: Amantadine HCl 100 mg Capsule PO SCH (09:12)
[2023-02-19] MEDS: Gabapentin 300 MG CAP PO SCH ×2 (09:12→20:54)
[2023-02-19] MEDS: Fluticasone Propionate Nasal Spray 16 gm Bottle NASAL SCH (09:15)
[2023-02-19] MEDS: Acetaminophen 325 MG TAB PO PRN (18:40)
[2023-02-20] MEDS: Amantadine HCl 100 mg Capsule PO SCH (08:44)
[2023-02-20] MEDS: Carvedilol 3.125 MG TAB PO SCH ×2 (08:44→17:44)
[2023-02-20] MEDS: Amlodipine 10 MG TAB PO SCH (08:44)
[2023-02-20] MEDS: Lisinopril 10 MG TAB PO SCH (08:44)
[2023-02-20] MEDS: Gabapentin 300 MG CAP PO SCH ×2 (08:45→20:10)
[2023-02-20] MEDS: Fluticasone Propionate Nasal Spray 16 gm Bottle NASAL SCH (08:45)
[2023-02-20] MEDS: Carbidopa/Levodopa 10-100 mg Tablet PO SCH (08:46)
[2023-02-21] MEDS: Fluticasone Propionate Nasal Spray 16 gm Bottle NASAL SCH (09:04)
[2023-02-21] MEDS: Lisinopril 10 MG TAB PO SCH (09:13)
[2023-02-21] MEDS: Amlodipine 10 MG TAB PO SCH (09:14)
[2023-02-21] MEDS: Gabapentin 300 MG CAP PO SCH ×2 (09:15→20:09)
[2023-02-21] MEDS: Carvedilol 3.125 MG TAB PO SCH ×2 (09:17→20:08)
[2023-02-21] MEDS: Amantadine HCl 100 mg Capsule PO SCH (09:19)
[2023-02-21] MEDS: Carbidopa/Levodopa 10-100 mg Tablet PO SCH (09:30)
[2023-02-22] MEDS: Fluticasone Propionate Nasal Spray 16 gm Bottle NASAL SCH (08:32)
[2023-02-22] MEDS: Gabapentin 300 MG CAP PO SCH (08:34)
[2023-02-22] MEDS: Amantadine HCl 100 mg Capsule PO SCH (08:36)
[2023-02-22] MEDS: Carbidopa/Levodopa 10-100 mg Tablet PO SCH (08:36)
[2023-02-22] MEDS: Carvedilol 3.125 MG TAB PO SCH (08:42)
[2023-02-22 14:08] VITALS: BP 121/63; TEMP 98.5
[2023-02-22] MEDS: Lisinopril 10 MG TAB PO SCH (14:30)
[2023-02-22] MEDS: Amlodipine 10 MG TAB PO SCH (14:30)
== END 2023-02-22 14:40 | disposition home or self-care (01) | DRG 309 ==
LOC: CSHTELE 21:06 → OBSVTOIN 02-17 16:49
PROVIDERS: ADMIT Internal Medicine; ATTEND Hospitalist
DX: I45.2 Bifascicular block (principal); I50.32 Chronic diastolic (congestive) heart failure; M62.82 Rhabdomyolysis; G20 Parkinson's disease; G62.9 Polyneuropathy, unspecified; R53.81 Other malaise; I11.0 Hypertensive heart disease with heart failure; R07.89 Other chest pain; E87.6 Hypokalemia; Z90.49 Acquired absence of other specified parts of digestive tract; Z82.49 Family history of ischemic heart disease and other diseases of the circulatory system; Z98.890 Other specified postprocedural states; Z98.51 Tubal ligation status; Z88.5 Allergy status to narcotic agent; Z79.899 Other long term (current) drug therapy
CPT/HCPCS: 36415; 70450; 80053; 82533; 82550; 83735; 84100; 84443; 84484; 85025; 93306; 96372; 96374; G0378; J1650; J3475; J7050

== ENCOUNTER 2023-05-18 22:15 | Emergency (ER) | payer MEDICARE, MEDICAID | END 2023-05-18 23:57 | disposition home or self-care (01) | LOC: CSHERS 22:15 | DX: R45.89 Other symptoms and signs involving emotional state (principal); R42 Dizziness and giddiness; K21.9 Gastro-esophageal reflux disease without esophagitis; I10 Essential (primary) hypertension; Z79.899 Other long term (current) drug therapy | CPT/HCPCS: 99284 ==